=== PATIENT | male | born 1975 | race Caucasian/White ===

== ENCOUNTER → 2020-08-11 | Outpatient (CLI) | payer SELFPAY ==
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
== END ==
LOC: RAD 09:18
PROVIDERS: ATTEND Internal Medicine
DX: M17.11 Unilateral primary osteoarthritis, right knee (principal)